=== PATIENT | female | born 1980 | race Caucasian/White ===

== ENCOUNTER → 2024-07-06 | Outpatient (CLI) | payer SELFPAY ==
--- NOTE | 2024-07-06 11:45 | XR_ITS ---
Examination: Screening digital mammography, bilateral Computer aided detection 3-D breast Tomosynthesis, bilateral Date and time of exam: July 06, 2024 1136 hours Compared to mammograms dating to January 05, 2021 Indication: Screening Technique: Nonmagnified MLO, CC views of the breasts to been obtained, reconstructed from 3-D Tomosynthesis images. R2 computer aided detection program utilized for evaluation of suspicious masses and/or abnormal calcifications. 3-D Tomosynthesis images obtained. Findings: Scattered areas of fibroglandular density Benign calcifications. Intact implants 9 mm oval mass upper left breast anterior depth on the MLO view Benign calcifications Impression: BI-RADS Category 0: Incomplete: Need additional imaging evaluation 9 mm oval mass upper left breast anterior depth on the MLO view, recommend follow-up spot tomographic views upper outer quadrant left breast anterior depth left breast sonography to complete workup
== END | disposition home or self-care (01) ==
PROVIDERS: Referring Provider Physician Assistant Medical; Visit Provider Physician Assistant Medical
DX: Z12.31 Encounter for screening mammogram for malignant neoplasm of breast (principal); N63.21 Unspecified lump in the left breast, upper outer quadrant
CPT/HCPCS: 77063; 77067